=== PATIENT | male | born 1955 | race Caucasian/White ===

== ENCOUNTER 2023-01-08 07:08 | Emergency (ER) | payer MEDICARE, SELFPAY ==
[2023-01-08 07:10] VITALS: BP 142/60; PULSE 72; RESP 18; TEMP 36.4; O2SAT 100; BMI 39.2
--- NOTE | 2023-01-08 07:16 | EKG12_ITS ---
Test Reason : CP Blood Pressure : / mmHG Vent. Rate : 070 BPM Atrial Rate : 070 BPM P-R Int : 154 ms QRS Dur : 084 ms QT Int : 374 ms P-R-T Axes : 036 033 050 degrees QTc Int : 403 ms Sinus rhythm with marked sinus arrhythmia Otherwise normal ECG Confirmed by ALEAH MARY, JAMIE ([id number]), mapping editor USHA BRYANT ([id number]) on 01/10/2023 8:04:43 AM Referred By: MIKE Confirmed By:JAMIE BULLARD MD
[2023-01-08 07:44] VITALS: BP 140/58; PULSE 78; RESP 23; O2SAT 94
--- NOTE | 2023-01-08 07:44 | ED.VIS.CHEST ---
HPI History of Present Illness Chief Complaint: Chest Pain Informant: patient Onset/Context/Timing Onset: Weeks Activity at onset: gradual Timing: Intermittent Quality: Positive for Aching Location: Right Parasternal and Left Parasternal Current Severity: Gone Maximum Severity: Mild Worsened By: Nothing Relieved By: Nothing Associated Symptoms: Negative for Nausea, Vomiting, Diaphoresis, Dyspnea, Cough, Fever, Acid Reflux or Palpitations Narrative Narrative: 67-year-old non-insulin dependent diabetic male with a history of a prior quadruple bypass in 2003. He has had a history of costochondritis in the past. States he is having parasternal chest discomfort. It does not radiate to his neck nor jaw nor his arms. There is no shortness of breath or diaphoresis. No nausea. The pain is not exertional. He thinks this is costochondritis but want to get checked out. He was treated with prednisone by PA at the [facility] which improved his costochondritis in the past because his blood sugars to be elevated. Prior Similar Symptoms: Yes Recent Illness/Hospitalization: No CVD Risk Factors: Positive for Diabetes; Negative for Smoking PE Risk Factors: Negative for Recent Travel/Surgery, Recent Immobilization, Prior DVT or PE, Cancer or OCP + Smoking + >/=35 TAD Risk Factors: Negative for Marfan's Syndrome PFSH PFSH Allergy/AdvReac Type Severity Reaction Status Date / Time No Known Allergies Allergy Verified 01/08/23 07:09 Social History Smoking Status: Unknown if ever smoked ROS ROS ED ROS Narrative Chest discomfort. Review of Systems ROS Unobtainable: Denies due to encephalopathy Constitutional Constitutional ED: Denies chills or fever(s) Eyes Eyes: Reports none ENT ENT ED: Denies ear pain Cardiovascular Cardiovascular: Reports as per HPI and chest pain; Denies palpitations or racing heartbeat Respiratory/Chest Respiratory/Chest: Denies cough or dyspnea Gastrointestinal Gastrointestinal: Denies abdominal pain or constipation Genitourinary Genitourinary ED: Denies dysuria or hematuria Musculoskeletal Musculoskeletal: Denies arthralgias Integumentary Denies abscess Neurologic Neurologic: Denies headache(s) Psychiatric Psychiatric: Denies anxiety or depression Endocrine Endocrinology: Denies cold intolerance Hematologic/Lymphatic Hematologic/Lymphatic: Denies easy bleeding Allergic/Immunologic Allergic/Immunologic ED: Denies mouth swelling EXAM Physical Exam Narrative Exam Narrative: Well-appearing 67-year-old male. Vital signs are stable and afebrile. Pulse ox 100% on room air no signs of hypoxia. He is in no distress. H EENT exam unremarkable. Moist mucous membranes. Neck nontender no JVD. Lungs clear to auscultation bilaterally. Heart regular rate and rhythm rate about 70 no murmur. Chest wall currently there is only minimal areas of tenderness. Consistent with a costochondritis. But is not consistently painful. There is no crepitance or subcu air no trauma. Abdomen is soft and nontender normal bowel sounds no peritoneal signs. Moving all 4 extremities. Calves are nontender without edema or cords. 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 Dorsi plantarflexion intact. Neurologically is awake and alert with no focal motor deficits. Const Vital Signs: 01/08/23 07:10 01/08/23 07:44 01/08/23 07:48 Temperature 97.6 F L Temperature Source Temporal Pulse Rate 72 78 Respiratory Rate 18 23 H Blood Pressure 142/60 H 140/58 H Blood Pressure Mean 87 85 Pulse Ox 100 94 95 Oxygen Delivery Method Room Air Room Air Room Air 01/08/23 08:41 Temperature Temperature Source Pulse Rate 61 Respiratory Rate 13 Blood Pressure 103/48 L Blood Pressure Mean 66 Pulse Ox 99 Oxygen Delivery Method Room Air Positive well nourished and well developed; Negative for cachectic, contractures or unkempt General Appearance ED: well developed and NAD; Negative for unkempt, cachectic, contractures or pallor Nutritional Appearance: Negative for cachectic HEENT Reports moist mucous membranes normocephalic and atraumatic; Negative for trauma or tenderness Eyes PERRL and EOMs intact bilaterally General Eye ED: Negative for pale conjunctiva or scleral icterus Neck no lymphadenopathy, supple and no JVD General: Negative for tenderness Chest Wall inspection of chest normal and palpation of chest normal Chest: Negative for tenderness Resp normal respiratory effort and clear to auscultation bilaterally Effort and Inspection: Negative for respiratory distress Auscultation: Negative for rales, rhonchi or wheezes Cardio regular rate, regular rhythm, S1 normal heart sound, S2 normal heart sound and no murmurs Rate: Negative for bradycardia or tachycardic Rhythm: Negative for abnormal rhythm Peripheral Pulses: pulses 2+ throughout GI normal to inspection, nondistended, normoactive bowel sounds, soft to palpation, non-tender, non-distended and no masses Back/Spine no CVA tenderness and no thoracic nor lumbar tenderness General Back: Negative for CVA tenderness Extremity normal to inspection General Extremety ED: Negative for edema, pulses abnormal or tenderness General Extremity: Negative for edema or pulses abnormal Neuro CN's II-XII intact bilaterally Sensorium / Orientation: awake, alert, oriented to person, oriented to place and oriented to time; Negative for confused, lethargic or stuporous Motor Exam: strength 5/5 throughout Psych mental status grossly normal Appearance: Negative for unkempt Attitude: No agitated Mood & Affect: Negative for depressed, anxious or tearful Skin no rashes or lesions noted and no wounds General Skin Exam: Negative for jaundice or pallor Rashes: No rashes noted Trauma: Negative for abrasion Heart Score History: Slightly/Non-Suspicious ECG: Normal Age: >/= 65 years Risk Factors: >/= 3 Risk Factors or History of CAD Troponin: </= Normal Limit Score: 4 MDM MDM MDM Narrative Medical decision making narrative: 67-year-old male prior quadruple bypass in 2003 and diabetic with chest pain it really does not sound cardiac. Is not exertional. There is no shortness of breath, nor nausea nor diaphoresis. He has had costochondritis before. He will undergo cardiac work-up. If it is negative we will card with him being discharged home with outpatient follow-up. Repeat exam patient doing well at 8:50 AM. He had I went over all his test results. He has had this for weeks. I do not think he needs a second troponin. This does seem to be costochondritis or possibly musculoskeletal pain. He will use Motrin and/or Tylenol for pain. Follow-up with his doctor as needed. History & Record Review Discussion w/independent historian: Patient Lab Data Attestation: I reviewed the patient's lab results. Lab results narrative: CBC shows white count 5.2. H&H 12.5 and 30.7. Platelets of 179. No old labs available for comparison or system. Chemistries show a gap of 3 BUN and creatinine 32 and 1.46. Glucose 198. Troponin 17. Labs: Laboratory Results - last 24 hr 01/08/23 01/08/23 08:09 08:09 WBC 5.2 RBC 3.57 L Hgb 12.5 L Hct 38.7 L MCV 108.4 H MCH 35.0 H MCHC 32.3 RDW Std Deviation 59.2 H RDW Coeff of Crow 14.9 H Plt Count 179 MPV 9.4 Immature Gran % (Auto) 0.400 Neut % (Auto) 63.4 Lymph % (Auto) 18.4 L [place] % (Auto) 10.9 H Eos % (Auto) 6.3 H Baso % (Auto) 0.6 Absolute Neuts (auto) 3.3 Absolute Lymphs (auto) 0.96 Nucleated RBC % 0 Sodium 135 L Potassium 4.4 Chloride 104 Carbon Dioxide 28.0 Anion Gap 3 L BUN 32 H Creatinine 1.46 H Estim Creat Clear Calc 45.90 Est GFR (MDRD) Af Amer 62 Est GFR (MDRD) Non-Af 51 L BUN/Creatinine Ratio 21.9 H Glucose 198 H Calcium 9.2 Troponin I High Sens 17 Radiography Chest X-Ray - ED: 1 View, Read by ED Physician, Normal, Heart, Lungs, Mediastinum and Bony Structures Diagnostic Testing: Chest x-ray, portable, single view interpreted myself shows no acute abnormality. Chronic changes. Prior sternotomy. No acute process. Rhythm Strip Rhythm Strip: Sinus Rhythm Rate: 70 Ectopy: None EKG Initial EKG: Attestation: I personally reviewed and interpreted this EKG as follows: Interpretation: Sinus Rhythm and No Acute Injury Pattern Comments: Normal sinus rhythm rate of 70 no acute signs of [place] nor ischemia. Prior EKG tracings: not available for review Prior: No Prior Discharge Plan Triage Chief Complaint: Chest Pain ED Provider: Skyler Rincon Dx/Rx/DC Orders Clinical Impression: Chest pain, History of coronary artery disease, History of diabetes mellitus, Hx of CABG, Acute costochondritis Instructions: ED Chest Wall Pain, Costochondritis Primary Care Provider: Dragan Zhu Activity Restrictions/Additional Instructions: Ice to your chest wall. Motrin and Tylenol for pain. If it is costochondritis the Motrin should help knock down the inflammation and not affect your blood sugars. We could do prednisone again but that obviously cause your blood sugars to spike. Disposition Disposition: Home, Self Care
[2023-01-08 07:48] VITALS: O2SAT 95
--- NOTE | 2023-01-08 08:16 | RAD_ITS ---
STUDY: X-RAY CHEST REASON FOR EXAM: Male, 67 years old. Chest pain TECHNIQUE: Single AP portable view of the chest. COMPARISON: None. FINDINGS: EKG electrodes are seen. The lungs are clear and expanded. There is no demonstrated pleural abnormality. Sternal cerclage wires and vascular clips are present from a prior sternotomy and coronary artery bypass graft procedure (CABG). Normal mediastinum and caitlyn. Normal visualized pulmonary arteries. There is atherosclerotic calcification of the aortic arch with tortuosity. Normal visualized thoracic spine. Normal visualized ribs, clavicles, and shoulders. There is no demonstrated abnormality of the visualized soft tissue structures of the upper abdomen. RAD/Chest 1 View (Portable) IMPRESSION: Normal x-ray examination of the chest. Electronically Signed: Josias Carpenter MD at 8:58 EDT ,
[2023-01-08 08:20] LABS: Absolute Lymphocyte Count 0.96 X10^3/uL (0.83-4.51); Absolute Neutrophil Count 3.3 X10^3/uL (2.0-7.7); Basophil# 0.03 X10^3/uL; Basophil% 0.6 % (0-1); Eosinophil# 0.33 X10^3/uL; Eosinophils% 6.3 % (0-5); Hematocrit 38.7 % (40-54); Hemoglobin 12.5 g/dL (13.0-16.5); Lymphocyte # 0.96 X10^3/ul (0.83-4.51); Lymphocyte % 18.4 % (19-41); Mean Corp Hgb Conc 32.3 g/dL (32-36); Mean Corpuscular Volume 108.4 fL (80-94); Mean Platelet Vol. 9.4 fl (6.2-12.0); Monocyte# 0.57 X10^3/uL; Monocyte% 10.9 % (0-10); NRBC Flagged by Analyzer 0 % (0-5); Neutrophil # 3.32 X10^3/uL (2.7-7.7); Neutrophil % 63.4 % (47-70); Platelet Count 179 K/mm3 (150-450); RBC Distribution Width CV 14.9 % (11.6-14.6); RBC Distribution Width SD 59.2 fl (35.1-43.9); Red Blood Count 3.57 M/mm3 (4.6-6.2); White Blood Count 5.2 K/mm3 (4.4-11.0)
[2023-01-08 08:39] LABS: Anion Gap 3 (5-15); BUN 32 mg/dL (7-18); BUN/Creat Ratio 21.9 RATIO (10-20); Calcium,Total 9.2 mg/dL (8.5-10.1); Chloride 104 mmol/L (98-107); Creatinine, Serum 1.46 mg/dL (0.70-1.30); EST Glomerular Filtration Rate 51 mL/min (>60); Est Glom Filt Rate - Afr Amer 62 mL/min (>60); Glucose 198 mg/dL (74-106); Potassium 4.4 mmol/L (3.5-5.1); Sodium Level 135 mmol/L (136-145); Troponin-I HS (w/2H Reflex) 17 pg/mL (3.0-78.0)
[2023-01-08 08:41] VITALS: BP 103/48; PULSE 61; RESP 13; O2SAT 99
[2023-01-08 08:57] VITALS: BP 103/48; PULSE 64; RESP 20; O2SAT 97
[2023-01-08 10:13] LABS: Reflex Troponin-HS? (from REC) Y
== END 2023-01-08 09:10 | disposition home or self-care (01) ==
PROVIDERS: Emergency Provider Emergency Medicine; PCP Family Medicine; Visit Provider Emergency Medicine
DX: M94.0 Chondrocostal junction syndrome [Tietze] (principal); E11.9 Type 2 diabetes mellitus without complications; R07.9 Chest pain, unspecified; I25.10 Atherosclerotic heart disease of native coronary artery without angina pectoris; Z95.1 Presence of aortocoronary bypass graft
CPT/HCPCS: 71045; 80048; 84484; 85025; 93005; 99284

== ENCOUNTER 2023-01-23 11:01 | Emergency (ER) | payer MEDICARE, SELFPAY ==
[2023-01-23 11:02] VITALS: BP 151/74; PULSE 57; RESP 18; TEMP 35.4; O2SAT 98; BMI 40.6
[2023-01-23 11:14] VITALS: BP 159/65; PULSE 65; RESP 18; O2SAT 99
--- NOTE | 2023-01-23 11:21 | EDS_ITS ---
HPI <MING De La Garza - Last Filed: 01/23/23 17:30> History of Present Illness Chief Complaint: Chest Pain Narrative Narrative: Patient presenting today with intermittent aching left and right-sided chest pain that he has had since 12/16/22. He reports a history of costochondritis. He reports that two days ago he began developing intermittent pain in his left arm and the right side of his jaw that he states, is not severe and goes away quickly. The pain is nonexertional and seems to be provoked by positional changes such as sitting up. Patient has a history of a quadruple bypass in 2003 and type 2 diabetes mellitus. 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 but is going to be following with [facility] next week. He denies any history of blood clots, fever, chills, abdominal pain, nausea, vomiting. PE Risk Factors: Negative for Recent Travel/Surgery, Recent Immobilization or Prior DVT or PE [facility] <MING De La Garza - Last Filed: 01/23/23 17:30> [facility] Medical History (Updated 01/23/23 @ 16:06 by Lisa Lowery) Achilles tendinitis of right lower extremity Anxiety Atherosclerosis of coronary artery of [place] heart without angina pectoris Benign neoplasm of colon Costochondral chest pain Detached retina Diabetes Diabetes mellitus type 2, controlled, without complications Essential hypertension Gout Hyperlipidemia Rotator cuff syndrome of right shoulder Home Medications allopurinol 300 mg tablet 300 mg PO DAILY 01/23/23 [History Last Taken Unknown] aspirin 81 mg tablet,delayed release 81 mg PO DAILY 01/23/23 [History Last Taken Unknown] cyclobenzaprine 10 mg tablet 10 mg PO TID PRN muscle spasm 01/23/23 [History Last Taken Unknown] docusate sodium 100 mg capsule (Colace) 100 mg PO DAILY 01/23/23 [History Last Taken Unknown] glimepiride 1 mg tablet 1 mg PO DAILY 01/23/23 [History Last Taken Unknown] hydrochlorothiazide 12.5 mg capsule 12.5 mg PO DAILY 01/23/23 [History Last Taken Unknown] indomethacin 25 mg capsule 25 mg PO DAILY PRN 01/23/23 [History Last Taken Unknown] lisinopril 10 mg tablet 10 mg PO DAILY 01/23/23 [History Last Taken Unknown] omeprazole 40 mg capsule,delayed release 40 mg PO Q OTHER DAY 01/23/23 [History Last Taken Unknown] pioglitazone 45 mg tablet 45 mg PO DAILY 01/23/23 [History Last Taken Unknown] pravastatin 20 mg tablet 20 mg PO QHS 01/23/23 [History Last Taken Unknown] Allergy/AdvReac Type Severity Reaction Status Date / Time COVID-19 vaccine, mRNA, Allergy Severe Anaphylaxis Verified 01/23/23 15:52 [id number], atorvastatin AdvReac Intermediate Other Verified 01/23/23 15:52 metformin AdvReac Intermediate GI upset Verified 01/23/23 15:52 rosuvastatin AdvReac Intermediate Diarrhea Verified 01/23/23 15:52 Family History (Updated 01/23/23 @ 15:48 by Lisa Lowery) Mother Diabetes Brother Diabetes Surgical History (Updated 01/23/23 @ 16:06 by Lisa Lowery) H/O heart bypass surgery History of carpal tunnel surgery of right wrist (~2013) Hx of cataract surgery Hx of cholecystectomy (~1984) Presence of aortocoronary bypass graft (~2003) Social History Smoking Status: Never smoker ROS <MING De La Garza - Last Filed: 01/23/23 17:30> ROS ED Constitutional Constitutional ED: Denies chills or fever(s) Eyes Eyes: Denies blurry vision or diplopia Cardiovascular Cardiovascular: Reports chest pain; Denies palpitations Respiratory/Chest Respiratory/Chest: Denies cough or dyspnea Gastrointestinal Gastrointestinal: Denies abdominal pain, nausea or vomiting Musculoskeletal Musculoskeletal: Denies arthralgias or myalgias Integumentary Denies abscess, Abrasions or rash Neurologic Neurologic: Denies paresthesias or weakness EXAM <MING De La Garza - Last Filed: 01/23/23 17:30> Physical Exam Const Vital Signs: 01/23/23 11:02 01/23/23 11:14 01/23/23 11:14 Temperature 95.7 F L Temperature Source Temporal Pulse Rate 57 L 65 Respiratory Rate 18 18 Respiratory Effort Short of Breath Blood Pressure 151/74 H 159/65 H Blood Pressure Mean 99 96 Pulse Ox 98 99 Oxygen Delivery Method Room Air Room Air 01/23/23 11:31 Temperature Temperature Source Pulse Rate Respiratory Rate Respiratory Effort Blood Pressure 157/68 H Blood Pressure Mean Pulse Ox Oxygen Delivery Method Positive well nourished, well developed and no apparent distress General Appearance ED: well developed HEENT Reports normocephalic and head/scalp atraumatic Mouth ED: Yes moist mucous membranes normal Eyes PERRL and EOMs intact bilaterally Neck full ROM and supple Chest Wall inspection of chest normal Chest Narrative: Parasternal chest wall tenderness to palpation Resp normal respiratory effort and clear to auscultation bilaterally Cardio regular rate and regular rhythm GI soft to palpation, non-tender, non-distended and no masses Back/Spine normal ROM and normal to inspection Extremity normal to inspection and full ROM Neuro oriented x3, CN's II-XII intact bilaterally, moves all extremities, no focal motor deficits and no sensory deficits noted Sensorium / Orientation: awake and alert Psych mental status grossly normal and thought process normal Skin no rashes or lesions noted and no wounds <Dr. Franky Davis MD - Last Filed: 01/23/23 18:50> Physical Exam Const Vital Signs: 01/23/23 11:02 01/23/23 11:14 01/23/23 11:14 Temperature 95.7 F L Temperature Source Temporal Pulse Rate 57 L 65 Respiratory Rate 18 18 Respiratory Effort Short of Breath Blood Pressure 151/74 H 159/65 H Blood Pressure Mean 99 96 Pulse Ox 98 99 Oxygen Delivery Method Room Air Room Air 01/23/23 11:31 Temperature Temperature Source Pulse Rate Respiratory Rate Respiratory Effort Blood Pressure 157/68 H Blood Pressure Mean Pulse Ox Oxygen Delivery Method MDM <MING De La Garza - Last Filed: 01/23/23 17:30> [facility] Narrative Medical decision making narrative: Patient presenting today with a history of costochondritis and left and right sided intermittent chest pains that are provoked by positional changes. He reports 2 days ago he developed left arm and right jaw pain that comes and goes within seconds but wanted to be evaluated for that. Patients symptoms can be reproduced by sitting up in the examination bed and with palpation to the chest on the right and left side. Patient was seen here 01/08/2023 for similar symptoms and had a cardiac work-up at that time that was unremarkable. I do not think that this is cardiac in nature, EKG obtained and shows sinus rhythm with PVCs. He is to follow-up with his PCP and take anti-inflammatories such as ibuprofen for his pain, he will be discharged home in stable condition and has been given return instructions. He is comfortable with plan. EKG Initial EKG: Comments: 65 bpm, sinus rhythm PVCs, no ST elevation, reviewed and interpreted by attending ED physician <Dr. Franky Davis MD - Last Filed: 01/23/23 18:50> [facility] Narrative Medical decision making narrative: Patient presenting today with a history of costochondritis and left and right sided intermittent chest pains that are provoked by positional changes. He reports 2 days ago he developed left arm and right jaw pain that comes and goes within seconds but wanted to be evaluated for that. Patients symptoms can be re produced by sitting up in the examination bed and with palpation to the chest on the right and left side. Patient was seen here 01/08/2023 for similar symptoms and had a cardiac work-up at that time that was unremarkable. I do not think that this is cardiac in nature, EKG obtained and shows sinus rhythm with PVCs. He is to follow-up with his PCP and take anti-inflammatories such as ibuprofen for his pain, he will be discharged home in stable condition and has been given return instructions. He is comfortable with plan. I have personally performed a face to face assessment of the patient and have reviewed the SCOTTEI Note. I performed a substantive portion of the visit including all aspects of the following. My jimenez findings include: History is remarkable for chest pain. Patient diagnosed with acute costochondritis. Patient presented because his blood pressure was slightly elevated and he had pain in his left shoulder arm. He was concerned this represented cardiac pain. He does have reproducible pain. Is also positional. Its not related to exertion or activity. He was seen approximately 1 week ago and had a negative cardiac work-up. He was discharged with persistent pain. Patient was informed based on his history and physical this does not sound to be cardiac. Patient does have history of hypertension, hyperlipidemia. He also has history of GERD. This is not similar to his GERD pain. He was placed on prednisone which helped however his blood sugars were elevated. Exam is remarkable for reproducible chest pain left side fourth fifth intercostal space. His exam is otherwise unremarkable. Medical Decision Making EKG was obtained per nurse protocol was unremarkable. Patient was informed pain that is fleeting and constant with is not cardiac. There is no indication to repeat test that were done last week. Patient was reassured. He was comfortable with this and was discharged to home Other additions or changes: [None] Discharge Plan Triage Chief Complaint: Chest Pain Other Complaint: Shortness of Breath ED Midlevel Provider: Swetha Lindsey ED Provider: Franky Davis Dx/Rx/DC Orders Clinical Impression: Costochondritis Instructions: ED Chest Wall Pain, Costochondritis Prescriptions: No Action allopurinol 300 mg tablet 300 mg PO DAILY glimepiride 1 mg tablet 1 mg PO DAILY lisinopril 10 mg tablet 10 mg PO DAILY hydrochlorothiazide 12.5 mg capsule 12.5 mg PO DAILY pioglitazone 45 mg tablet 45 mg PO DAILY omeprazole 40 mg capsule,delayed release(DR/EC) 40 mg PO Q OTHER DAY pravastatin 20 mg tablet 20 mg PO QHS indomethacin 25 mg capsule 25 mg PO DAILY PRN Label Comments: TAKE 1 CAPSULE BY MOUTH ONCE DAILY NEEDED. cyclobenzaprine 10 mg tablet 10 mg PO TID PRN (Reason: muscle spasm) Label Comments: TAKE 1 TABLET BY MOUTH THREE TIMES A DAY NEEDED docusate sodium [Colace] 100 mg capsule 100 mg PO DAILY aspirin 81 mg tablet,delayed release (DR/EC) 81 mg PO DAILY Primary Care Provider: Dragan Zhu Referrals: Dragan Zhu MD [Primary Care Provider] - 3-5 Days Activity Restrictions/Additional Instructions: Please follow-up with your PCP and return for any worsening of symptoms. Disposition Disposition: Home, Self Care Discharge Date/Time: 01/23/23 11:32
[2023-01-23 11:31] VITALS: BP 157/68
== END 2023-01-23 11:32 | disposition home or self-care (01) ==
LOC: ED 11:26
PROVIDERS: Emergency Provider Emergency Medicine; PCP Family Medicine; Visit Provider Emergency Medicine
DX: M94.0 Chondrocostal junction syndrome [Tietze] (principal); E11.65 Type 2 diabetes mellitus with hyperglycemia; E78.5 Hyperlipidemia, unspecified; I10 Essential (primary) hypertension; I25.10 Atherosclerotic heart disease of native coronary artery without angina pectoris; R06.02 Shortness of breath; Z79.899 Other long term (current) drug therapy; Z79.82 Long term (current) use of aspirin; R07.82 Intercostal pain
CPT/HCPCS: 93005; 99282; A4216

== ENCOUNTER → 2023-02-25 | Outpatient (CLI) | payer MEDICARE, SELFPAY ==
--- NOTE | 2023-02-25 06:59 | ECHOCS_ITS ---
Reason For Study: Chest Pain Procedure This was a 2D Doppler, Color Flow transthoracic echocardiogram. The study was technically difficult. Contrast injection was performed. Exam performed in department. Left Ventricle Normal LV size. Left ventricular systolic function is normal. The estimated ejection fraction is 55 %. Normal diastology for age. Right Ventricle Normal RV size. Normal systolic function. Atria The left atrium is moderately enlarged. Normal right atrium. Bubble contrast study negative for right to left interatrial shunt. Mitral Valve The mitral valve is structurally normal. No prolapse or stenosis seen. Tricuspid Valve Normal tricuspid valve. Trivial tricuspid valve insufficiency. Unable to estimate RV systolic pressure due to insufficient tricuspid regurgitant envelope. Aortic Valve The aortic valve is not well visualized in the short axis view. There is no aortic stenosis. No aortic valve insufficiency. Pulmonic Valve The pulmonic valve is not well visualized. Great Vessels Normal aortic root. Pericardium/Pleural No pericardial effusion. Medication 20 gauge I.V. with prn adaptor inserted into left arm. Diluted definity 2.5ml given slow IV push to enhance endocardial definition. Performed a rapid injection of agitated mix of 9 cc saline and 1cc air to assess for atrial septal defect. MMode/2D Measurements & Calculations LVIDd: 5.5 cm IVSd: 0.89 cm Ao root diam: 3.1 cm LVIDs: 4.4 cm LVPWd: 1.1 cm LA dimension: 4.1 cm RVDd: 3.9 cm FS: 20.0 % LAV(MOD-bp): 59.8 ml LVAd ap4: 40.5 cm2 SV(MOD-sp4): 78.7 ml LAV(MOD-bp) Indexed: 26.7 ml/m2 LVLd ap4: 8.5 cm LAV(MOD-sp2): 55.1 ml EDV(MOD-sp4): 157.6 ml LAV(MOD-sp4): 54.2 ml EDV(sp4-el): 163.6 ml LVAs ap4: 25.1 cm2 LVLs ap4: 6.7 cm ESV(MOD-sp4): 78.9 ml ESV(sp4-el): 80.4 ml EF(MOD-sp4): 49.9 % EF(sp4-el): 50.8 % SV(sp4-el): 83.2 ml LA A4 area: 19.8 cm2 RA A4 area: 19.1 cm2 TAPSE: 1.2 cm Time Measurements MV dec time: 0.23 sec Doppler Measurements & Calculations MV E max jasiel: 105.8 cm/sec Lat Peak E' Jasiel: 15.0 cm/sec Med Peak E' Jasiel: 10.7 cm/sec MV A max jasiel: 88.8 cm/sec E/E' lat: 7.0 E/E' med: 9.9 MV E/A: 1.2 MV V2 max: 120.4 cm/sec MV P1/2t max jasiel: 120.4 cm/sec Ao V2 max: 166.5 cm/sec MV max P.8 mmHg MV P1/2t: 75.5 msec Ao max P.1 mmHg MV V2 mean: 65.6 cm/sec Ao V2 mean: 111.2 cm/sec MV mean P.0 mmHg MV dec slope: 467.1 cm/sec2 Ao mean P.8 mmHg MV V2 VTI: 36.8 cm MVA(P1/2t): 2.9 cm2 Ao V2 VTI: 39.0 cm AV (velocity ratio): 0.77 LV V1 max: 118.0 cm/sec PA V2 max: 135.1 cm/sec LV V1 max P.6 mmHg PA V2 mean: 94.4 cm/sec LV V1 mean P.4 mmHg LV V1 mean: 86.9 cm/sec LV V1 VTI: 30.1 cm ECHO/Echo Complete W/ Contrast Interpretation Summary The estimated ejection fraction is 55 %. Bubble contrast study negative for right to left interatrial shunt. The left atrium is moderately enlarged. The study was technically difficult. Contrast injection was performed. Ordering Physician: Debi Baird Referring Physician: Dragan Zhu Performed By: Daquan Dukes RCS
--- NOTE | 2023-02-26 08:55 | STRESSREP_ITS ---
Stress Test Report Date: 02/25/2023 Procedure: Exercise tolerance test/imaging study Indications: Chest pain Consent: Per the patient Procedure: The patient exercised on a Maxwell protocol for 5 minutes and 56 achieving a peak heart rate of 148 bpm (96% predicted maximal heart rate) with a peak blood pressure 160/60 mmHg and a peak MET capacity of 7.0 METs. The baseline ECG demonstrated normal sinus rhythm. The peak exercise ECG demonstrated no ischemic changes. There were no cardiac dysrhythmias pretest, during exercise, or recovery. The functional capacity was considered average. There was no complaint of chest discomfort during exercise or recovery. The examination was discontinued secondary to target heart rate being achieved. The patient was injected with 15.0 mCi of technetium 99m Cardiolite and subsequently rest SPECT Cardiolite nuclear imaging was obtained in the horizontal long, vertical long, and short axis views. Post-exercise, the patient was injected with 44.2 mCi of technetium 99m Cardiolite and subsequently stress SPECT Cardiolite nuclear imaging was obtained in the horizontal long, vertical long, and short axis views. A gated Cardiolite study at peak stress was obtained. Rest and stress SPECT Cardiolite nuclear imaging status post realignment, normalization, and attenuation correction, demonstrates a very small basal lateral reversible defect. There is end systolic thickening and brightening. The gated Cardiolite study demonstrates myocardial thickening and inward wall motion. The reported LVEF is 66%. Impression: 1. Technically adequate (percent predicted maximal heart rate greater than 85%) exercise tolerance test 2. Peak exercise ECG with no ischemic changes. 3. There were no cardiac dysrhythmias pretest, during exercise, or recovery 4. Rest and stress SPECT Cardiolite nuclear imaging demonstrate a very small reversible perfusion defect of the basal lateral wall. 5. The gated Cardiolite study reports an LVEF of 66%. This note was generated with [employer] software. It may contain incorrect words, spelling, and punctuation that were not noted in checking the note before signing.
== END | disposition home or self-care (01) ==
PROVIDERS: PCP Family Medicine; Referring Provider Internal Medicine Cardiovascular Disease; Visit Provider Internal Medicine Cardiovascular Disease
DX: R07.89 Other chest pain (principal); E66.9 Obesity, unspecified; R53.83 Other fatigue; R42 Dizziness and giddiness; Z95.1 Presence of aortocoronary bypass graft; I25.10 Atherosclerotic heart disease of native coronary artery without angina pectoris
CPT/HCPCS: 78452; 93017; 93306; A9500; Q9957; A4216; C8929

== ENCOUNTER → 2024-11-17 | Outpatient (CLI) | payer MEDICARE, SELFPAY ==
[2024-11-17 15:54] LABS: Pro- Brain NATRIURETIC PEPTIDE 140 pg/mL (<=900)
== END | disposition home or self-care (01) ==
LOC: LAB 14:56
PROVIDERS: PCP Family Medicine; Referring Provider Internal Medicine Cardiovascular Disease; Visit Provider Internal Medicine Cardiovascular Disease
DX: I50.9 Heart failure, unspecified (principal)
CPT/HCPCS: 36415; 83880

== ENCOUNTER → 2024-12-20 | Outpatient (CLI) | payer MEDICARE, SELFPAY ==
--- NOTE | 2024-12-20 07:03 | ECHOCS_ITS ---
Reason For Study Reason For Study: Chest pain Procedure This was a 2D Doppler, Color Flow transthoracic echocardiogram. The study was technically difficult. Exam performed in department. Left Ventricle Normal size and thickness. Left ventricular systolic function is lower limits of normal. The left ventricular ejection fraction is 50 %. No evidence for diastolic dysfunction. Right Ventricle Normal right ventricle. Atria The left atrium is mildly enlarged. Normal right atrium. Mitral Valve Mild mitral annular calcification. Trivial mitral valve insufficiency. Tricuspid Valve Trivial tricuspid valve insufficiency. Normal pulmonary artery pressure. Aortic Valve Mild diffuse aortic valve thickening. There is no aortic stenosis. No aortic valve insufficiency. Pulmonic Valve Trivial pulmonic valve insufficiency. Great Vessels Normal sized aortic root. Pericardium/Pleural No pericardial effusion. Medication Diluted definity 1.0ml given slow IV push to enhance endocardial definition. MMode/2D Measurements & Calculations LVIDd: 5.1 cm IVSd: 1.1 cm Ao root diam: 2.8 cm LVIDs: 3.5 cm LVPWd: 1.0 cm LA dimension: 4.4 cm RVDd: 3.8 cm FS: 30.6 % LAV(MOD-bp): 61.3 ml LVAd ap4: 38.9 cm2 LVAd ap2: 35.8 cm2 LAV(MOD-bp) Indexed: 27.8 ml/m2 LVLd ap4: 8.2 cm LVLd ap2: 7.8 cm LAV(MOD-sp2): 64.6 ml EDV(MOD-sp4): 149.7 ml EDV(MOD-sp2): 133.7 ml LAV(MOD-sp4): 56.1 ml EDV(sp4-el): 157.5 ml EDV(sp2-el): 139.2 ml LVAs ap4: 23.8 cm2 LVAs ap2: 22.1 cm2 LVLs ap4: 6.5 cm LVLs ap2: 6.3 cm ESV(MOD-sp4): 70.6 ml ESV(MOD-sp2): 63.0 ml ESV(sp4-el): 74.5 ml ESV(sp2-el): 65.7 ml EF(MOD-sp4): 52.8 % EF(MOD-sp2): 52.9 % EF(sp4-el): 52.7 % SV(MOD-sp4): 79.1 ml SV(MOD-sp2): 70.7 ml SV(sp4-el): 82.9 ml SI(MOD-sp4): 35.9 ml/m2 SI(MOD-sp2): 32.1 ml/m2 LA A4 area: 20.4 cm2 LA dimension(2D): 4.5 cm RA A4 area: 13.5 cm2 TAPSE: 1.6 cm Time Measurements MV dec time: 0.22 sec Doppler Measurements & Calculations MV E max jasiel: 104.6 cm/sec Lat Peak E' Jasiel: 11.4 cm/sec Med Peak E' Jasiel: 9.1 cm/sec MV A max jasiel: 63.8 cm/sec E/E' lat: 9.2 E/E' med: 11.5 MV E/A: 1.6 MV dec slope: 474.9 cm/sec2 Ao V2 max: 164.5 cm/sec LV V1 max: 109.7 cm/sec Ao max P.8 mmHg LV V1 max P.8 mmHg Ao V2 mean: 107.4 cm/sec LV V1 mean P.9 mmHg Ao mean P.2 mmHg LV V1 mean: 81.1 cm/sec Ao V2 VTI: 39.9 cm LV V1 VTI: 30.5 cm AV (velocity ratio): 0.77 PA V2 max: 104.8 cm/sec TR max jasiel: 206.6 cm/sec PA V2 mean: 68.6 cm/sec TR max P.1 mmHg ECHO/Echo Complete W/ Contrast Interpretation Summary Left ventricular systolic function is lower limits of normal. LVEF 50-55% No evidence for diastolic dysfunction. The left atrium is mildly enlarged. Mild mitral annular calcification. Ordering Physician: Debi Baird Referring Physician: Dragan Zhu Performed By: Viviana Carmona RDCS
--- NOTE | 2024-12-20 10:38 | STRESSREP ---
Stress Test Report Date: 12/20/2024 Procedure: Exercise tolerance test/imaging study Indications: Coronary artery disease Consent: Per the patient Procedure: The patient exercised on a Maxwell protocol for 5 minutes achieving a peak heart rate of 142 bpm (94% predicted maximal heart rate) with a peak blood pressure 162/82 mmHg and a peak MET capacity of 7.0 METs. The baseline ECG demonstrated sinus rhythm. The peak exercise ECG showed sinus tachycardia with no ischemic changes. There were no cardiac dysrhythmias pretest, during exercise, or recovery. The functional capacity was considered average for age. There was no complaint of chest discomfort during exercise or recovery. The examination was discontinued secondary to target heart rate being achieved. The patient was injected with 14.8 mCi of technetium 99m Cardiolite and subsequently rest SPECT Cardiolite nuclear imaging was obtained in the horizontal long, vertical long, and short axis views. Post-exercise, the patient was injected with 45.3 mCi of technetium 99m Cardiolite and subsequently stress SPECT Cardiolite nuclear imaging was obtained in the horizontal long, vertical long, and short axis views. A gated Cardiolite study at peak stress was obtained. Rest and stress SPECT Cardiolite nuclear imaging status post realignment, normalization, and attenuation correction, demonstrates the appearance of relative uniform tracer uptake and myocardial perfusion appearing within normal limits. There is end systolic thickening and brightening. The gated Cardiolite study demonstrates myocardial thickening and inward wall motion. The reported LVEF is 69%. Impression: 1. Technically adequate (percent predicted maximal heart rate greater than 85%) exercise tolerance test 2. Peak exercise ECG with no ischemic changes 3. There were no cardiac dysrhythmias pretest, during exercise, or recovery 4. Rest and stress SPECT Cardiolite nuclear imaging demonstrate relative uniform tracer uptake and myocardial perfusion appearing within normal limits. 5. The gated Cardiolite study reports an LVEF of 69%. This note was generated with [employer] software. It may contain incorrect words, spelling, and punctuation that were not noted in checking the note before signing.
== END | disposition home or self-care (01) ==
LOC: CVS 07:01
PROVIDERS: PCP Family Medicine; Referring Provider Internal Medicine Cardiovascular Disease; Visit Provider Internal Medicine Cardiovascular Disease
DX: R07.89 Other chest pain (principal); I25.10 Atherosclerotic heart disease of native coronary artery without angina pectoris; E78.5 Hyperlipidemia, unspecified; I10 Essential (primary) hypertension; R53.83 Other fatigue
CPT/HCPCS: 78452; 93017; 93306; A9500; Q9957; A4216; C8929

== ENCOUNTER 2024-12-24 06:34 | Day surgery (SDC) | payer MEDICARE, SELFPAY ==
--- NOTE | 2024-12-23 13:06 | PAT.ANESEVAL ---
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 When Was Last Pacemaker Check QUESTION #4 FULL TEXT: You/Your Family Experience fever (hyperthermia) with Anesthesia Last Oral Intake Last Oral intake: Last Oral Intake NPO since Meds taken in AM with sips of water? 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 Female No 12/23/24 12:47 HX of Motion Sickness No 12/23/24 12:47 HX of N/V After Surgery Yes 12/23/24 12:47 Non-Smoker Yes 12/23/24 12:47 Duration of Surgery greater No 12/23/24 12:47 than 60 minutes Number of Risk Factors 2 12/23/24 12:47 PONV Score Moderate Risk 12/23/24 12:47 Height & Weight Height & Weight: Anesthesia: Height & Weight Height 5 ft 7 in 11/23/24 13:53 Respiratory Assessment Respiratory Assessment - experimental mechanic spacecraft: Respiratory Tract Infection Hx - experimental mechanic spacecraft Hx Respiratory Tract Infection No 12/23/24 12:47 STOP Sleep Apnea STOP Sleep Apnea - experimental mechanic spacecraft: STOP Sleep Apnea - experimental mechanic spacecraft Hx Hypertension Yes: CONTROLLED WITH MED 12/23/24 12:47 Hx Sleep Apnea No 12/23/24 12:47 CPAP BIPAP Do you snore loudly (louder No 12/23/24 12:47 than talking or can be heard Do you often feel tired/ No 12/23/24 12:47 fatigued/ sleepy during daytime? Has anyone observed you stop No 12/23/24 12:47 breathing during sleep? STOP Results Negative 12/23/24 12:47 QUESTION #5 FULL TEXT : Do you snore loudly (louder than talking or can be heard through closed doors)? 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 Specify any problems Hx of Preganancy in last 3 N/A 12/23/24 12:47 Months Nurse Filling Out Transfusion [facility]BU[facility] 12/23/24 12:47 & Questions: Date: 12/23/24 12/23/24 12:47 Time: 12:49 12/23/24 12:47 Patient unable to answer at this time (ie. 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: /Reproductive Hx- experimental mechanic spacecraft Hx Now No 12/23/24 12:47 Gestational Age (in weeks): EDC: Hx Hx Para Hx Section SAB No 12/23/24 12:47 [facility] Medical History (Updated 12/23/24 @ 12:55 by Kaley Camargo) Wears contact lenses Arthritis History of renal disease Easy bruising High cholesterol Heartburn Gastric reflux Dietary restriction Chronic cough Non-smoker History of echocardiogram History of stress test Cardiology follow-up encounter Anemia Abdominal pain Bloating Coronary artery disease Obesity (BMI 30-39.9) Dyslipidemia Anxiety Fatigue Chest discomfort Urinary frequency Dizziness Rotator cuff syndrome of right shoulder Hyperlipidemia Gout Essential hypertension Diabetes mellitus type 2, controlled, without complications Detached retina Benign neoplasm of colon Achilles tendinitis of right lower extremity Atherosclerosis of coronary artery of [place] heart without angina pectoris Costochondral chest pain Diabetes Home Medications ?Medication ?Instructions ?Recorded ?Last Taken ?Type allopurinol 300 mg tablet 300 mg PO DAILY 01/23/23 Unknown History aspirin 81 mg tablet,delayed 81 mg PO DAILY 01/23/23 12/19/24 History release docusate sodium 100 mg capsule 100 mg PO DAILY 01/23/23 Unknown History (Colace) glimepiride 1 mg tablet 1 mg PO DAILY 01/23/23 Unknown History hydrochlorothiazide 12.5 mg capsule 12.5 mg PO DAILY 01/23/23 Unknown History indomethacin 25 mg capsule 25 mg PO DAILY PRN ARTHRITIS 01/23/23 Unknown History lisinopril 10 mg tablet 10 mg PO DAILY 01/23/23 Unknown History pioglitazone 45 mg tablet 45 mg PO DAILY 01/23/23 12/21/24 History pravastatin 20 mg tablet 20 mg PO QHS 01/23/23 Unknown History omeprazole 40 mg capsule,delayed 40 mg PO QODAY 10/30/23 Unknown History release amlodipine 2.5 mg tablet 2.5 mg PO DAILY #90 tabs 02/16/24 Unknown Rx cyanocobalamin (vitamin B-12) 1,000 mcg PO QDAY 04/28/24 Unknown History 1,000 mcg capsule Allergy/AdvReac Type Severity Reaction Status Date / Time COVID-19 vaccine, mRNA, Allergy Severe Anaphylaxis Verified 12/23/24 12:44 [id number], atorvastatin AdvReac Intermediate Other Verified 12/23/24 12:44 metformin AdvReac Intermediate GI upset Verified 12/23/24 12:44 rosuvastatin AdvReac Intermediate Diarrhea Verified 12/23/24 12:44 Family History Mother Diabetes Brother Diabetes CAD (coronary artery disease) CABG x5 2004 Father , 53 Myocardial infarction Surgical History (Updated 12/23/24 @ 12:55 by Kaley Camargo) History of cardiac catheterization History of colonoscopy History of eye surgery Status post aorto-coronary artery bypass graft History of carpal tunnel surgery of right wrist (~2013) Hx of cholecystectomy (~1984) Hx of cataract surgery Presence of aortocoronary bypass graft (~2003) H/O heart bypass surgery Social History Smoking Status: Never smoker alcohol intake: never substance use type: does not use caffeine: Yes Type: carbonated beverages Number of servings: 2 and coffee Audit: Pertinent Findings Pertinent Findings EKG Perinent findings: 08/25/2022. Sinus rhythm with PACs. Otherwise normal EKG. Stress test pertinent findings: 12/20/2024. Negative. EF 69%. Echo (EF%) pertinent findings: 12/20/2024. EF 50 to 55%. Consult pertinent findings: Cardiology 11/17/2024. Coronary artery disease. Status post CABG. Repeat stress test. Hypertension. Chronic. Continue meds. Chronic diabetes type 2. Controlled. Recommendation Anesthesia Recommendation Anesthesia recommendation: OPTIMIZED for anesthesia
[2024-12-24] VITALS (7 sets, daily range): BP systolic 97–129; BP diastolic 44–74; PULSE 61–77; RESP 16–18; TEMP 36.3–36.9; O2SAT 95–98; BMI 40.3
--- NOTE | 2024-12-24 07:27 | PCM.PRE.AN2 ---
ASA Classification* ASA Classification ASA Classification: 3 Assessment & Plan Anesthesia* Anesthesia Assessment Anesthesia Assessment: Discussed sedation and/or anesthesia options, risks, benefits, and alternatives with patient/parents/legal guardian/POA. Questions invited. The patient/parents/legal guardian/POA seems to understand and agrees to proceed with anesthesia plan. Reviewed the physical assessment, medical history, allergy history and patient home medications list prior to surgery/procedure/anesthetic and documented any changes. Performed airway and anesthesia risk assessments. Anesthesia Type Anesthesia Type: MAC Anesthesia Focused Assessment* Airway Assessment Mouth opens: >3 cm Mallampati Score: II Focused Labs Anesthesia Preop lab: CBC WBC 5.2 K/mm3 (4.4-11.0) 01/08/23 08:09 01/08/23 RBC 3.57 M/mm3 (4.6-6.2) L 01/08/23 08:09 01/08/23 Hgb 12.5 g/dL (13.0-16.5) L 01/08/23 08:09 01/08/23 Hct 38.7 % (40-54) L 01/08/23 08:09 01/08/23 Plt Count 179 K/mm3 (150-450) 01/08/23 08:09 01/08/23 CHEMISTRY Potassium 4.4 mmol/L (3.5-5.1) 01/08/23 08:09 01/08/23 Sodium 135 mmol/L (136-145) L 01/08/23 08:09 01/08/23 BUN 32 mg/dL (7-18) H 01/08/23 08:09 01/08/23 Creatinine 1.46 mg/dL (0.70-1.30) H 01/08/23 08:09 01/08/23 Glucose 198 mg/dL (74-106) H 01/08/23 08:09 01/08/23 COAG Pre-Assessment Diagnosis/Proposed Procedure Planned Operative Procedure(s): EGD, CSCOPE Anesthesia History 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 When Was Last Pacemaker Check QUESTION #4 FULL TEXT: You/Your Family Experience fever (hyperthermia) with Anesthesia Last Oral Intake Last Oral intake: Last Oral Intake NPO since Meds taken in AM with sips of water? 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: PONV - senior analyst market intelligence Female No 12/23/24 12:47 HX of Motion Sickness No 12/23/24 12:47 HX of N/V After Surgery Yes 12/23/24 12:47 Non-Smoker Yes 12/23/24 12:47 Duration of Surgery greater No 12/23/24 12:47 than 60 minutes Number of Risk Factors 2 12/23/24 12:47 PONV Score Moderate Risk 12/23/24 12:47 Height & Weight Height & Weight: Anesthesia: Height & Weight Height 5 ft 7 in 11/23/24 13:53 Respiratory Assessment Respiratory Assessment - senior analyst market intelligence: Respiratory Tract Infection Hx - senior analyst market intelligence Hx Respiratory Tract Infection No 12/23/24 12:47 STOP Sleep Apnea STOP Sleep Apnea - senior analyst market intelligence: STOP Sleep Apnea - senior analyst market intelligence Hx Hypertension Yes: CONTROLLED WITH MED 12/23/24 12:47 Hx Sleep Apnea No 12/23/24 12:47 CPAP BIPAP Do you snore loudly (louder No 12/23/24 12:47 than talking or can be heard Do you often feel tired/ No 12/23/24 12:47 fatigued/ sleepy during daytime? Has anyone observed you stop No 12/23/24 12:47 breathing during sleep? STOP Results Negative 12/23/24 12:47 QUESTION #5 FULL TEXT : Do you snore loudly (louder than talking or can be heard through closed doors)? 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 Specify any problems Hx of Preganancy in last 3 N/A 12/23/24 12:47 Months Nurse Filling Out Transfusion [facility] 12/23/24 12:47 & Questions: Date: 12/23/24 12/23/24 12:47 Time: 12:49 12/23/24 12:47 Patient unable to answer at this time (ie. confused, unrespo /Reproduction History /Reproductive History - senior analyst market intelligence: /Reproductive Hx- senior analyst market intelligence Hx Now No 12/23/24 12:47 Gestational Age (in weeks): EDC: Hx Hx Para Hx Section SAB No 12/23/24 12:47 Active Medications Active Medications: Current Medications Generic Name Dose Route Start Last Admin Trade Name Freq PRN Reason Stop Dose Admin Lactated Ringer's 1,000 mls @ 15 mls/hr 12/24/24 07:00 IV .Q48H JUAN LUIS PFSH Medical History Wears contact lenses Arthritis History of renal disease Easy bruising High cholesterol Heartburn Gastric reflux Dietary restriction Chronic cough Non-smoker History of echocardiogram History of stress test Cardiology follow-up encounter Anemia Abdominal pain Bloating Coronary artery disease Obesity (BMI 30-39.9) Dyslipidemia Anxiety Fatigue Chest discomfort Urinary frequency Dizziness Rotator cuff syndrome of right shoulder Hyperlipidemia Gout Essential hypertension Diabetes mellitus type 2, controlled, without complications Detached retina Benign neoplasm of colon Achilles tendinitis of right lower extremity Atherosclerosis of coronary artery of [place] heart without angina pectoris Costochondral chest pain Diabetes Home Medications ?Medication ?Instructions ?Recorded ?Last Taken ?Type allopurinol 300 mg tablet 300 mg PO DAILY 01/23/23 12/23/24 History aspirin 81 mg tablet,delayed 81 mg PO DAILY 01/23/23 12/19/24 History release docusate sodium 100 mg capsule 100 mg PO DAILY 01/23/23 12/23/24 History (Colace) glimepiride 1 mg tablet 1 mg PO DAILY 01/23/23 12/23/24 History hydrochlorothiazide 12.5 mg capsule 12.5 mg PO DAILY 01/23/23 12/23/24 History indomethacin 25 mg capsule 25 mg PO DAILY PRN ARTHRITIS 01/23/23 12/23/24 History lisinopril 10 mg tablet 10 mg PO DAILY 01/23/23 12/23/24 History pioglitazone 45 mg tablet 45 mg PO DAILY 01/23/23 12/21/24 History pravastatin 20 mg tablet 20 mg PO QHS 01/23/23 12/23/24 History omeprazole 40 mg capsule,delayed 40 mg PO QODAY 10/30/23 12/23/24 History release amlodipine 2.5 mg tablet 2.5 mg PO DAILY #90 tabs 02/16/24 12/23/24 Rx cyanocobalamin (vitamin B-12) 1,000 mcg PO QDAY 04/28/24 12/23/24 History 1,000 mcg capsule Allergy/AdvReac Type Severity Reaction Status Date / Time COVID-19 vaccine, mRNA, Allergy Severe Anaphylaxis Verified 12/24/24 07:03 [id number], atorvastatin AdvReac Intermediate Other Verified 12/24/24 07:03 metformin AdvReac Intermediate GI upset Verified 12/24/24 07:03 rosuvastatin AdvReac Intermediate Diarrhea Verified 12/24/24 07:03 Family History Mother Diabetes Brother Diabetes CAD (coronary artery disease) CABG x5 2004 Father , 53 Myocardial infarction Surgical History History of cardiac catheterization History of colonoscopy History of eye surgery Status post aorto-coronary artery bypass graft History of carpal tunnel surgery of right wrist (~2013) Hx of cholecystectomy (~1984) Hx of cataract surgery Presence of aortocoronary bypass graft (~2003) H/O heart bypass surgery Social History Smoking Status: Never smoker alcohol intake: never substance use type: does not use caffeine: Yes Type: carbonated beverages Number of servings: 2 and coffee Review of Systems (Anesthesia) ROS Narrative System reviewed and no additional complaints, except as documented.
[2024-12-24] MEDS: Lactated Ringers 1,000 ML 15 ML IV (07:31)
--- NOTE | 2024-12-24 07:52 | PCM.HP.BLA ---
History and Physical Date of Admission: 12/24/24 Intake Vital Signs 04/28/2408:31 11/18/2507:48 11/23/2512:53 Height 5 ft 7 in 5 ft 7 in 5 ft 7 in Weight: 261 lb 262 lb 263 lb 6 oz BMI 40.8 41.0 41.2 BP 129/67 H 118/66 126/74 H Blood Pressure Location Lt brachial Lt brachial Rt brachial Position Sitting Sitting Sitting Respiration 16 20 H 18 Pulse 76 68 73 Pulse Source NIBP NIBP Monitor Temp 97.5 F L Temp Source Temporal Pulse Oximetry (%) 98 Oxygen Delivery Method room air Intake Visit Reasons: UPPER AND LOWER- ACID REFLUX AND ANEMIA Chief Complaint: upper andl ower- acid reflux and anemia Is patient in pain?: Yes (abd) Allergies COVID-19 vaccine, mRNA, [id number], Allergy (Severe, Verified 11/23/24 13:53) Anaphylaxisatorvastatin Adverse Reaction (Intermediate, Verified 11/23/24 13:53) Othermetformin Adverse Reaction (Intermediate, Verified 11/23/24 13:53) GI upsetrosuvastatin Adverse Reaction (Intermediate, Verified 11/23/24 13:53) Diarrhea Medications ?Medication ?Instructions ?Recorded ?Confirmed ?Type allopurinol 300 mg tablet 300 mg PO DAILY 01/23/23 11/23/24 History aspirin 81 mg tablet,delayed 81 mg PO DAILY 01/23/23 11/23/24 History release docusate sodium 100 mg capsule 100 mg PO DAILY 01/23/23 11/23/24 History (Colace) glimepiride 1 mg tablet 1 mg PO DAILY 01/23/23 11/23/24 History hydrochlorothiazide 12.5 mg capsule 12.5 mg PO DAILY 01/23/23 11/23/24 History indomethacin 25 mg capsule 25 mg PO DAILY PRN 01/23/23 11/23/24 History lisinopril 10 mg tablet 10 mg PO DAILY 01/23/23 11/23/24 History pioglitazone 45 mg tablet 45 mg PO DAILY 01/23/23 11/23/24 History pravastatin 20 mg tablet 20 mg PO QHS 01/23/23 11/23/24 History omeprazole 40 mg capsule,delayed 40 mg PO .qod 10/30/23 11/23/24 History release amlodipine 2.5 mg tablet 2.5 mg PO DAILY #90 tabs 02/16/24 11/23/24 Rx cyanocobalamin (vitamin B-12) 1,000 mcg PO QDAY 04/28/24 11/23/24 History 1,000 mcg capsule Have you fallen in the past year?: No PFSH Medical History (Updated 11/23/24 @ 14:[address] Wali Astorga MD) Anemia Abdominal pain Bloating Coronary artery disease Obesity (BMI 30-39.9) Dyslipidemia Anxiety Fatigue Chest discomfort Urinary frequency Dizziness Rotator cuff syndrome of right shoulder Hyperlipidemia Gout Essential hypertension Diabetes mellitus type 2, controlled, without complications Detached retina Benign neoplasm of colon Achilles tendinitis of right lower extremity Atherosclerosis of coronary artery of [place] heart without angina pectoris Costochondral chest pain Diabetes Surgical History Status post aorto-coronary artery bypass graft History of carpal tunnel surgery of right wrist (~2013) Hx of cholecystectomy (~1984) Hx of cataract surgery Presence of aortocoronary bypass graft (~2003) H/O heart bypass surgery Family History Mother DiabetesBrother Diabetes CAD (coronary artery disease) CABG x5 2005Father , 53 Myocardial infarction Social History Smoking Status: Never smoker alcohol intake: never substance use type: does not use caffeine: Yes Type: carbonated beverages Number of servings: 2 and coffee HPI HPI HPI: Patient is a 69-year-old male here for bloating and anemia. The patient reports that he has severe bloating after eating and it does not matter what he eats. He is already on omeprazole every other day. He does not take it every day because he said the acid reflux was worse when he was taking it every day. The patient is also mildly anemic. He attempted to have a colonoscopy recently but he woke up during the procedure and he was unable to have any more sedation because it was as an outpatient center. He would like his colonoscopy repeated here so he can have adequate sedation ROS General General: Yes fatigue; No weight change, appetite, colon cancer, breast cancer or weakness HEENT HEENT: Yes eye injury and eye surgery; No difficulty swallowing, swollen glands or hoarseness Endo Endocrine: Yes diabetes mellitus; No thyroid disease, thyroid cancer, Hair loss, heat intolerance or cold intolerance Skin Skin: No rash or changing moles Musc Musculoskeletal: Yes back problems, arthritis and gout; No rheumatoid arthritis or joint pain Cardio Cardiovascular: Yes heart disease; No murmur, pacemaker, atrial fibrillation, high blood pressure, heart attack, heart stent, palpitations, shortness of breath with exertion or chest pain Psych Psychiatric: No depression, anxiety or hearing voices Resp Respiratory: Yes shortness of breath, No sleep apnea, Yes cough, No COPD, No asthma, No emphysema and No wheezing Gastro Gastrointestinal: Yes abdominal pain, Yes nausea or vomiting, Yes diarrhea, No constipation, No blood in stool, Yes acid reflux, No hemorrhoids, No ulcers, No gallbladder problem and No black,tarry stools Doug Hematologic: Yes blood thinners, No blood disorders, No bleeding, Yes anemia and No blood clots Additional Details: baby aspirin Neuro Neurologic: No numbness, No tingling and No weakness Exam Const General: cooperative Orientation: alert and oriented x3 HENMT Head: normal to inspection Neck Neck: normal visual inspection and full ROM Chest Chest palpation & inspection: normal inspection of the chest Resp Effort & Inspection: normal respiratory effort Auscultation: clear to auscultation bilaterally Cardio Rate: regular rate Rhythm: regular rhythm GI Inspection: non-distended Palpation: soft and nontender Skin General: no rashes or lesions noted Neuro General: patient alert and patient oriented x3 Extrem General: full ROM Psych Appearance: grossly normal Mental Status: mental status grossly normal Assessment and Plan Assessment and Plan (1) Bloating: Status: Acute (2) Abdominal pain: Status: Acute (3) Anemia: Status: Acute Qualifiers: Anemia type: iron deficiency Iron deficiency anemia type: unspecified iron deficiency Qualified Code(s): D50.9 - Iron deficiency anemia, unspecified Orders: Orders Colonoscopy Today EGD Today Plan The patient is having bloating after meals as well as upper abdomen discomfort and anemia. Plan for EGD with biopsies as well as colonoscopy. I explained endoscopy in detail to the patient. I explained the risks including but not limited to stroke or heart attack with anesthesia, perforation of the GI tract, bleeding, infection. I explained that any of these could necessitate further emergency surgery. The patient understands and all questions were answered sufficiently. The patient wishes to proceed with procedure. He had a CT scan that did not show a hiatal hernia. Wali Astorga MD Pager: [facility] [address] [place] [address] [address] [place] [address] Office: I have examined the patient and the H&P has been reviewed. There are no clinical changes since date of exam.
[2024-12-24 07:53] LABS: Bedside Glucose 129 mg/dL (74-106)
--- NOTE | 2024-12-24 08:22 | OP.EGD_ITS ---
Patient Name: Ryan Kelly Procedure Date: 12/24/2024 7:56 AM Date of : 1955 Age: 69 Procedure: Upper GI endoscopy Indications: Epigastric abdominal pain Providers: Wali Astorga MD Referring MD: Wali Astorga MD Medicines: Propofol per Anesthesia Patient Profile: This is a 69 year old male. Refer to note in patient chart for documentation of history and physical. Complications: No immediate complications. Procedure: Pre-Anesthesia Assessment: - Prior to the procedure, a History and Physical was performed, and patient medications and allergies were reviewed. The patient's tolerance of previous anesthesia was also reviewed. The risks and benefits of the procedure and the sedation options and risks were discussed with the patient. All questions were answered, and informed consent was obtained. Prior Anticoagulants: The patient has taken no anticoagulant or antiplatelet agents. After reviewing the risks and benefits, the patient was deemed in satisfactory condition to undergo the procedure. After obtaining informed consent, the endoscope was passed under direct vision. Throughout the procedure, the patient's blood pressure, pulse, and oxygen saturations were monitored continuously. The Colonoscope was introduced through the mouth, and advanced to the third part of duodenum. The upper GI endoscopy was accomplished without difficulty. The patient tolerated the procedure well. Scope In: 8:03:56 AM Scope Out: 8:06:02 AM Total Procedure Duration Time 0 hours 2 minutes 6 seconds Findings: The esophagus was normal. The stomach was normal. The examined duodenum was normal. Impression: - Normal esophagus. - Normal stomach. - Normal examined duodenum. - No specimens collected. Recommendation: - Discharge patient to home. - Resume previous diet. - Continue present medications. Procedure Code(s): --- Professional --- 89866, Esophagogastroduodenoscopy, flexible, transoral; diagnostic, including collection of specimen(s) by brushing or washing, when performed (separate procedure) Diagnosis Code(s): --- Professional --- R10.13, Epigastric pain CPT copyright 2021 [employer]. All rights reserved. The codes documented in this report are preliminary and upon military technology specialist review may be revised to meet current compliance requirements. Wali Astorga MD 12/24/2024 8:22:24 AM This report has been signed electronically. Number of Addenda: 0 Note Initiated On: 12/24/2024 7:56 AM
--- NOTE | 2024-12-24 08:22 | OP.CCLET_ITS ---
12/24/2024 Dragan Zhu Re : Upper GI endoscopy procedure for Ryan Mahan Audra This procedure was performed on Tuesday, December 24, 2024. My impressions and recommendations are as follows: Impressions : - Normal esophagus. - Normal stomach. - Normal examined duodenum. - No specimens collected. Recommendations : - Discharge patient to home. - Resume previous diet. - Continue present medications. My findings are described in the full procedure note, which is enclosed. If I can be of further assistance, please feel free to contact me at Doctor phone number(s): , Work: . Sincerely, Wali Astorga MD 12/24/2024 8:22:24 AM This report has been signed electronically.
--- NOTE | 2024-12-24 08:24 | PCM.POST.ANE ---
Anesthesia: Postop Eval I Current Vital Signs Temperature: 98.4 F Pulse Rate: 77 Blood Pressure: 104/47 Respiratory Rate: 16 Pulse Ox: 95 Oxygen Delivery Method: Room Air Assessment Airway patent: Yes Spontaneous unlabored respirations: Yes Mental status: Awake nausea: No Vomiting: No Anesthesia Complication: No Fluid Hydration Crystalloid volume administer (ml): 300 Total IV fluid infused: 300 Progress Note Anesthesia document: Postop Eval 1 completed: Yes
--- NOTE | 2024-12-24 08:28 | OP.COLON_ITS ---
Patient Name: Ryan Kelly Procedure Date: 12/24/2024 8:06 AM Date of : 1955 Age: 69 Procedure: Colonoscopy Indications: Screening for colorectal malignant neoplasm Providers: Wali Astorga MD Referring MD: Wali Astorga MD Medicines: Propofol per Anesthesia Patient Profile: This is a 69 year old male. Refer to note in patient chart for documentation of history and physical. Last Colonoscopy: several years ago. Complications: No immediate complications. Procedure: Pre-Anesthesia Assessment: - Prior to the procedure, a History and Physical was performed, and patient medications and allergies were reviewed. The patient's tolerance of previous anesthesia was also reviewed. The risks and benefits of the procedure and the sedation options and risks were discussed with the patient. All questions were answered, and informed consent was obtained. Prior Anticoagulants: The patient has taken no anticoagulant or antiplatelet agents. After reviewing the risks and benefits, the patient was deemed in satisfactory condition to undergo the procedure. After I obtained informed consent, the scope was passed under direct vision. Throughout the procedure, the patient's blood pressure, pulse, and oxygen saturations were monitored continuously. The Colonoscope was introduced through the anus and advanced to the cecum, identified by appendiceal orifice and ileocecal valve. The colonoscopy was performed without difficulty. The patient tolerated the procedure well. The quality of the bowel preparation was good. The ileocecal valve, appendiceal orifice, and rectum were photographed. Scope In: 8:07:28 AM Scope Withdrawal Time 0 hours 5 minutes 31 seconds Scope Out: 8:18:08 AM Total Procedure Duration Time 0 hours 10 minutes 40 seconds Findings: The entire examined colon appeared normal on direct and retroflexion views. Impression: - The entire examined colon is normal on direct and retroflexion views. - No specimens collected. Recommendation: - Discharge patient to home. - Resume previous diet. - Continue present medications. - Repeat colonoscopy is not recommended due to current age (66 years or older) for screening purposes. Procedure Code(s): --- Professional --- 52466, Colonoscopy, flexible; diagnostic, including collection of specimen(s) by brushing or washing, when performed (separate procedure) Diagnosis Code(s): --- Professional --- Z12.11, Encounter for screening for malignant neoplasm of colon CPT copyright 2021 [employer]. All rights reserved. The codes documented in this report are preliminary and upon drapery and upholstery estimator review may be revised to meet current compliance requirements. Wali Astorga MD 12/24/2024 8:28:26 AM This report has been signed electronically. Number of Addenda: 0 Note Initiated On: 12/24/2024 8:06 AM
--- NOTE | 2024-12-24 08:29 | OP.CCLET_ITS ---
12/24/2024 Dragan Zhu Re : Colonoscopy procedure for Ryan Mahan Audra This procedure was performed on Tuesday, December 24, 2024. My impressions and recommendations are as follows: Impressions : - The entire examined colon is normal on direct and retroflexion views. - No specimens collected. Recommendations : - Discharge patient to home. - Resume previous diet. - Continue present medications. - Repeat colonoscopy is not recommended due to current age (66 years or older) for screening purposes. My findings are described in the full procedure note, which is enclosed. If I can be of further assistance, please feel free to contact me at Doctor phone number(s): , Work: . Sincerely, Wali Astorga MD 12/24/2024 8:28:26 AM This report has been signed electronically.
--- NOTE | 2024-12-24 08:32 | POSTOPAN2_ITS ---
Anesthesia Postop Eval I Sum Postop Eval Completion status Anesthesia document: Postop Eval 1 completed: Yes Anesthesia Postop Eval I Summary Anesthesia Postop Eval I Summary: Anesthesia Postop Eval I: Assessment Summary Airway patent Yes 12/24/24 08:24 [email or web address] Spontaneous unlabored Yes 12/24/24 08:24 SYSTEMS [email or web address] respirations Mental status Awake 12/24/24 08:24 [email or web address] nausea No 12/24/24 08:24 [email or web address] Vomiting No 12/24/24 08:24 [email or web address] Anesthesia Postop Eval I: Fluid Summary Crystalloid volume administer 300 12/24/24 08:24 [email or web address] (ml) Colloids volume administered ( ml) Blood Product volume administered (ml) Total IV fluid infused 300 12/24/24 08:24 [email or web address] Anesthesia Postop Eval I: Summary Notes Anesthesia Complication No 12/24/24 08:24 [email or web address] Anesthesia Complication Comment: Post-operative progress note Anesthesia: Postop Eval II Evaluation Mental status: Awake Pain Level: 0 nausea: No Vomiting: No
--- NOTE | 2024-12-24 08:32 | PCM.POSTANE2 ---
Anesthesia Postop Eval I Sum Postop Eval Completion status Anesthesia document: Postop Eval 1 completed: Yes Anesthesia Postop Eval I Summary Anesthesia Postop Eval I Summary: Anesthesia Postop Eval I: Assessment Summary Airway patent Yes 12/24/24 08:24 WWE [email or web address] Spontaneous unlabored Yes 12/24/24 08:24 [employer] [email or web address] respirations Mental status Awake 12/24/24 08:24 [employer] [email or web address] nausea No 12/24/24 08:24 [employer] [email or web address] Vomiting No 12/24/24 08:24 [employer] [email or web address] Anesthesia Postop Eval I: Fluid Summary Crystalloid volume administer 300 12/24/24 08:24 [employer] [email or web address] (ml) Colloids volume administered ( ml) Blood Product volume administered (ml) Total IV fluid infused 300 12/24/24 08:24 [employer] [email or web address] Anesthesia Postop Eval I: Summary Notes Anesthesia Complication No 12/24/24 08:24 [employer] [email or web address] Anesthesia Complication Comment: Post-operative progress note Anesthesia: Postop Eval II Evaluation Mental status: Awake Pain Level: 0 nausea: No Vomiting: No
== END 2024-12-24 09:02 | disposition home or self-care (01) ==
LOC: EN 06:34 → AC 07:54
PROVIDERS: PCP Family Medicine; Referring Provider Surgery; Visit Provider Surgery
PROC: 0DJD8ZZ Inspection of Lower Intestinal Tract, Via Natural or Artificial Opening Endoscopic (ICD-10-PCS; CPT 45378; principal; 2024-12-24 07:55)
DX: Z12.11 Encounter for screening for malignant neoplasm of colon (principal); E11.9 Type 2 diabetes mellitus without complications; K21.9 Gastro-esophageal reflux disease without esophagitis; D50.9 Iron deficiency anemia, unspecified; I25.10 Atherosclerotic heart disease of native coronary artery without angina pectoris; I10 Essential (primary) hypertension; Z95.1 Presence of aortocoronary bypass graft; Z79.82 Long term (current) use of aspirin; Z79.84 Long term (current) use of oral hypoglycemic drugs; Z79.899 Other long term (current) drug therapy
CPT/HCPCS: 45378; 43235; 82962